=== PATIENT | female | born 1960 | race Caucasian/White ===

== ENCOUNTER 2016-04-15 03:05 | Emergency (ER) | payer SELFPAY ==
[2016-04-15] MEDS ORDERED: SODIUM CHLOR 0.9% 1000 ML INJ 1,000 ML IV SCH (03:27)
[2016-04-15 03:28] VITALS: BP 135/82; PULSE 73; RESP 18; O2SAT 93
[2016-04-15] MEDS ORDERED: LIDOCAINE VISCOUS 2% SOLN 15 ML UDC PO ONE (03:30)
[2016-04-15] MEDS ORDERED: ONDANSETRON HCL 4 MG/2 ML VIAL IVP ONE (03:30)
[2016-04-15] MEDS ORDERED: ALUMINUM/MAGNESIUM/SIMETH 30 ML CUP PO ONE (03:30)
[2016-04-15] MEDS ORDERED: SODIUM CHLORIDE 0.9% FLUSH 5 ML FLUSH IVF PRN (03:30)
[2016-04-15] MEDS ORDERED: SODIUM CHLOR 0.9% 1000 ML INJ 1,000 ML IV ONE (03:30)
[2016-04-15 03:31] VITALS: PULSE 78; RESP 18; O2SAT 97
[2016-04-15 03:56] LABS: AUTOMATED NEUTROPHIL # 8.1 TH/MM3 (1.8-7.7); BASOPHIL # 0.1 TH/MM3 (0-0.2); BASOPHIL % 0.7 % (0.0-2.0); EOSINOPHIL # 0.3 TH/MM3 (0-0.4); EOSINOPHIL % 2.5 % (0.0-4.0); HEMATOCRIT 44.2 % (35.0-46.0); HEMO FLAGS DIFF FINAL; LYMPH % 18.4 % (9.0-44.0); MEAN CELL VOLUME 87.2 FL (80.0-100.0); MEAN CORPUSCULAR HEMOGLOBIN 29.5 PG (27.0-34.0); MEAN CORPUSCULAR HGB CONC 33.8 % (32.0-36.0); MONO % 5.6 % (0.0-8.0); NEUT % 72.8 % (16.0-70.0); PLATELET COUNT 190 TH/MM3 (150-450); RED BLOOD COUNT 5.07 MIL/MM3 (4.00-5.30); RED CELL DISTRIBUTION WIDTH 13.5 % (11.6-17.2); WHITE BLOOD COUNT 11.1 TH/MM3 (4.0-11.0)
[2016-04-15 05:02] LABS: ALKALINE PHOSPHATASE 98 U/L (45-117); TOTAL BILIRUBIN ADULT 0.4 MG/DL (0.2-1.0)
[2016-04-15 05:04] LABS: ALT (GPT) 18 U/L (10-53); ANION GAP 9 MEQ/L (5-15); AST (GOT) 24 U/L (15-37); BICARBONATE 22.1 MEQ/L (21.0-32.0); BLOOD UREA NITROGEN 11 MG/DL (7-18); CHLORIDE 113 MEQ/L (98-107); GLOMERULAR FILTRATION RATE 110 ML/MIN (>89); SODIUM (NA) 144 MEQ/L (136-145)
[2016-04-15 05:05] LABS: POTASSIUM 4.1 MEQ/L (3.5-5.1)
[2016-04-15] MEDS ORDERED: MAAL1000 CHEW (05:29)
--- NOTE | 2016-04-15 05:30 | PD ---
HPI Chief Complaint: Cold / Flu Symptoms Time Seen by Provider: 03:23 Travel History International Travel<30 days: No Contact w/Intl Traveler<30days: No Traveled to known affect area: No History of Present Illness HPI 56-year-old female arrives with a sore throat. She drank tequila earlier in the night quite an unusual event for her and since then has had sore throat. It is constant. It's worse with swallowing. Onset gradual. Duration a few hours. PFSH Past Medical History Medical History: Denies Significant Hx Diminished Hearing: No Tetanus Vaccination: Unknown Influenza Vaccination: No Past Surgical History Cardiac Surgery: Yes (2 STENTS PLACED) Social History Alcohol Use: No Tobacco Use: Yes Substance Use: No Allergies-Medications (Allergen,Severity, Reaction): Coded Allergies: No Known Allergies (Unverified , 04/15/16) Reported Meds & Prescriptions Reported Meds & Active Scripts Active Maalox Max (Calcium Carbonate-Simethicone) 1,000-60 Mg Chew 1-2 Tab CHEW TID PRN 7 Days Review of Systems Except as stated in HPI: all other systems reviewed are Neg Physical Exam Narrative GENERAL: 56-year-old female pleasant mild distress SKIN: Warm and dry. HEAD: Atraumatic. Normocephalic. EYES: Pupils equal and round. No scleral icterus. No injection or drainage. ENT: No nasal bleeding or discharge. Mucous membranes pink and moist. No significant tonsillar hypertrophy asymmetry or exudate. No kissing tonsils. No depression of the soft palate NECK: Trachea midline. No JVD. No significant anterior neck adenopathy. CARDIOVASCULAR: Regular rate and rhythm. No murmur appreciated. RESPIRATORY: No accessory muscle use. Clear to auscultation. Breath sounds equal bilaterally. GASTROINTESTINAL: Soft. No focal tenderness. MUSCULOSKELETAL: No obvious deformities. No clubbing. No cyanosis. No edema. NEUROLOGICAL: Awake and alert. No obvious cranial nerve deficits. Motor grossly within normal limits. Normal speech. PSYCHIATRIC: Appropriate mood and affect; insight and judgment normal. Data Data Last Documented VS Vital Signs Date Time Temp Pulse Resp B/P Pulse Ox O2 Delivery O2 Flow Rate FiO2 04/15/16 03:31 78 18 04/15/16 03:31 97 Nasal Cannula 2 04/15/16 03:28 135/82 Orders Complete Blood Count With Diff (04/15/16 03:27) Comprehensive Metabolic Panel (04/15/16 03:27) Lipase (04/15/16 03:27) Iv Access Insert/Monitor (04/15/16 03:27) Ecg Monitoring (04/15/16 03:27) Oximetry (04/15/16 03:27) Ondansetron Inj (Zofran Inj) (04/15/16 03:30) Sodium Chlor 0.9% 1000 Ml Inj (Ns 1000 M (04/15/16 03:27) Sodium Chloride 0.9% Flush (Ns Flush) (04/15/16 03:30) Al-Mag Hy-Si 40-40-4 Mg/Ml Liq (Mag-Al P (04/15/16 03:30) Lidocaine 2% Viscous (Xylocaine 2% Visco (04/15/16 03:30) Sodium Chlor 0.9% 1000 Ml Inj (Ns 1000 M (04/15/16 03:30) Labs Laboratory Tests Test 04/15/16 04/15/16 03:30 04:24 White Blood Count 11.1 TH/MM3 Red Blood Count 5.07 MIL/MM3 Hemoglobin 14.9 GM/DL Hematocrit 44.2 % Mean Corpuscular Volume 87.2 FL Mean Corpuscular Hemoglobin 29.5 PG Mean Corpuscular Hemoglobin 33.8 % Concent Red Cell Distribution Width 13.5 % Platelet Count 190 TH/MM3 Mean Platelet Volume 9.6 FL Neutrophils (%) (Auto) 72.8 % Lymphocytes (%) (Auto) 18.4 % Monocytes (%) (Auto) 5.6 % Eosinophils (%) (Auto) 2.5 % Basophils (%) (Auto) 0.7 % Neutrophils # (Auto) 8.1 TH/MM3 Lymphocytes # (Auto) 2.0 TH/MM3 Monocytes # (Auto) 0.6 TH/MM3 Eosinophils # (Auto) 0.3 TH/MM3 Basophils # (Auto) 0.1 TH/MM3 CBC Comment DIFF FINAL Differential Comment Sodium Level 144 MEQ/L Potassium Level 4.1 MEQ/L Chloride Level 113 MEQ/L Carbon Dioxide Level 22.1 MEQ/L Anion Gap 9 MEQ/L Blood Urea Nitrogen 11 MG/DL Creatinine 0.57 MG/DL Estimat Glomerular Filtration 110 ML/MIN Rate Random Glucose 116 MG/DL Calcium Level 7.8 MG/DL Total Bilirubin 0.4 MG/DL Aspartate Amino Transf 24 U/L (AST/SGOT) Alanine Aminotransferase 18 U/L (ALT/SGPT) Alkaline Phosphatase 98 U/L Total Protein 6.2 GM/DL Albumin 3.1 GM/DL Lipase 180 U/L [facility] Medical Decision Making Medical Screen Exam Complete: Yes Emergency Medical Condition: Yes Medical Record Reviewed: Yes Differential Diagnosis Bacterial pharyngitis, viral pharyngitis, GERD/reflux esophagitis Narrative Course CBC & BMP Diagram 04/15/16 03:30 04/15/16 04:24 LFTs and lipase are normal. The patient is resting comfortably and feels better, is alert and in no distress. The patients results and examination findings were discussed. The repeat examination is unremarkable and benign. The history, exam, diagnostic testing, and current condition do not suggest any significant pathology to warrant further testing, continued ED treatment, admission, or surgical evaluation at this point. The vital signs have been stable. The patient does not have uncontrollable pain, intractable vomiting, or other significant symptoms. The patient's condition is stable and appropriate for discharge. The patient will pursue further outpatient evaluation with a primary care physician or other designated or consulting physician as indicated in the discharge instructions. The patient expressed understanding and was agreeable with this plan. Diagnosis Primary Impression: Sore throat Additional Impression: Alcohol ingestion Referrals: Primary Care Physician 2 days Additional Instructions: You have a choice when it comes to health care, and we are glad that you chose [facility]. Hopefully, we have met your expectations on today's visit. You are welcome to return to [facility] at any time, as we are committed to meeting the health care needs of our community. Med/Other Pt SpecificInfo: Prescription(s) given Scripts Calcium Carbonate-Simethicone (Maalox Max)1,000-60 Mg Chew1-2 Tab CHEW TID PRN ( INDIGESTION OR UPSET STOMACH) 7 Days Ref 0 Prov:Nitesh Lanier MD 04/15/16 Disposition: 01 DISCHARGE HOME Condition: Stable Nitesh Lanier MD Apr 15, 2016 05:30
== END 2016-04-15 06:17 | disposition home or self-care (01) ==
LOC: NEPE 03:05
DX: J02.9 Acute pharyngitis, unspecified (principal); Z72.0 Tobacco use
CPT/HCPCS: 80053; 83690; 85025; 96374; 99283; J2405; J7030